=== PATIENT | male | born 1950 | race African-American/Black ===

== ENCOUNTER 2022-03-22 18:47 | Inpatient (IN) | payer BC, OTHER ==
[2022-03-22] MEDS ORDERED: ACETAMINOPHEN 1000 MG/100 ML BAG IVPB ONE (19:25)
[2022-03-22] MEDS ORDERED: SODIUM CHLORIDE 0.9% 500 ML INFUS.BAG IV ONE (19:25)
[2022-03-22] MEDS ORDERED: KETOROLAC TROMETHAMINE 15 MG/ML VIAL IVPUSH ONE (19:25)
[2022-03-22 19:33] VITALS: RESP 18
[2022-03-22 21:08] LABS: BASO % 0.5 % (0-2.0); HEMATOCRIT 33.5 % (35.4-49); HEMOGLOBIN 11.3 GM/dL (11.7-16.9); LYMPH % 12.7 % (8-40); MCH 29.7 pg (25.7-33.7); MCHC 33.9 g/dl (32.0-35.9); MEAN CELL VOLUME 87.7 fl (80-96); MEAN PLT VOLUME 8.6 fl (7.5-11.1); NEUT % 73.8 % (42.8-82.8); PLATELET COUNT 236 10^3/uL (134-434); RBC 3.82 M/mm3 (4.00-5.60); RDW 13.3 % (11.9-15.9); WHITE BLOOD COUNT 14.6 K/mm3 (4.0-10.0)
[2022-03-22 21:09] LABS: VENOUS BASE EXCESS 0.2 mmol/L (-2-2); VENOUS O2 SATURATION 88.3 % (70-80); VENOUS PCO2 27.8 mmHg (38-52); VENOUS PH 7.515 (7.310-7.410)
[2022-03-22 21:22] LABS: INR 1.15 (0.83-1.09); PROTHROMBIN TIME (PATIENT) 13.2 SEC (9.7-13.0)
[2022-03-22 21:25] LABS: ACTIVATED PTT 29.1 SECONDS (25.2-36.5)
[2022-03-22] MEDS ORDERED: ACETAMINOPHEN INJECTION 100 ML IVPB ONE (21:25)
[2022-03-22] MEDS ORDERED: KETOROLAC TROMETHAMINE 15 MG/ML VIAL ONE (21:26)
[2022-03-22 21:43] LABS: ALBUMIN 3.4 g/dl (3.4-5.0); BLOOD UREA NITROGEN 50.6 mg/dL (7-18); CALCIUM 9.6 mg/dL (8.5-10.1)
[2022-03-22 21:47] LABS: CREATININE 2.8 mg/dL (0.55-1.3)
[2022-03-22 21:48] LABS: BILIRUBIN,TOTAL 0.6 mg/dL (0.2-1)
[2022-03-23] MEDS ORDERED: KETOROLAC TROMETHAMINE 15 MG/ML VIAL IVPUSH PRN (03:58)
[2022-03-23] MEDS ORDERED: predniSONE 20 MG TABLET (UD) PO SCH ×2 (03:58→10:00)
[2022-03-23 05:37] LABS: EPI CELLS 17 /uL (0-25.1); HYALINE CASTS 7 /uL (0-3.1); URINE APPEARANCE CLOUDY; URINE BILIRUBIN NEGATIVE (NEGATIVE); URINE COLOR YELLOW; URINE GLUCOSE (UA) NEGATIVE (NEGATIVE); URINE KETONE TRACE (NEGATIVE); URINE LEUK ESTERASE NEGATIVE (NEGATIVE); URINE NITRITE NEGATIVE (NEGATIVE); URINE PROTEIN 1+ (NEGATIVE); URINE RBC 7 /uL (0-23.9); URINE UROBILINOGEN 0.2 mg/dL (0.2-1.0); URINE WBC 33 /uL (0-25.8)
[2022-03-23 06:18] VITALS: BMI 24.5
[2022-03-23] MEDS: HEPARIN NA (PORCINE) 5,000 UNITS/ML 1ML VIAL SQ SCH ×2 (06:42→14:29)
[2022-03-23] MEDS: INSULIN SLIDING SCALE (NOVOLOG) 1 VIAL SQ SCH ×3 (06:57→17:25)
[2022-03-23] MEDS ORDERED: TRIAMCINOLONE ACET 40MG/1ML VIAL IM ONE (07:30)
[2022-03-23] MEDS ORDERED: LIDOCAINE HCL 2% (50ML VIAL) SQ ONE (07:30)
[2022-03-23 09:19] LABS: BASO % 0.1 % (0-2.0); HEMATOCRIT 32.5 % (35.4-49); HEMOGLOBIN 10.7 GM/dL (11.7-16.9); MCH 28.9 pg (25.7-33.7); MCHC 32.8 g/dl (32.0-35.9); MEAN CELL VOLUME 88.1 fl (80-96); MEAN PLT VOLUME 8.6 fl (7.5-11.1); MONO % 14.7 % (3.8-10.2); NEUT % 69.2 % (42.8-82.8); PLATELET COUNT 233 10^3/uL (134-434); RBC 3.69 M/mm3 (4.00-5.60); RDW 13.7 % (11.9-15.9)
[2022-03-23 09:50] LABS: ALBUMIN 2.9 g/dl (3.4-5.0); BLOOD UREA NITROGEN 55.5 mg/dL (7-18); CALCIUM 9.2 mg/dL (8.5-10.1)
[2022-03-23 09:51] LABS: MAGNESIUM 2.4 mg/dL (1.8-2.4); URIC ACID 10.9 mg/dL (2.6-7.2)
[2022-03-23 09:53] LABS: CREATININE 2.7 mg/dL (0.55-1.3); PHOSPHOROUS 4.6 mg/dL (2.5-4.9)
[2022-03-23] MEDS ORDERED: FINASTERIDE 5 MG TABLET (FP) PO SCH (10:00)
[2022-03-23] MEDS ORDERED: amLODIPine BESYLATE 5 MG TABLET (FP) PO SCH (10:00)
[2022-03-23] MEDS ORDERED: LISINOPRIL 20 MG TABLET PO SCH (10:00)
[2022-03-23 10:03] LABS: TOT PROT 6.9 g/dl (6.4-8.2)
[2022-03-23 10:06] LABS: BILIRUBIN,TOTAL 0.5 mg/dL (0.2-1)
[2022-03-23 10:56] LABS: CRYSTALS,SYNOVIAL FLUID POSITIVE
[2022-03-23 11:09] LABS: BF WBC & OTHER NUCLEATED CELLS 14580 /mm3
[2022-03-23 11:17] LABS: URINE BACTERIA 8.5 /uL (0-1359)
[2022-03-23 11:31] LABS: BODY FLUID MONOCYTE 2 %
[2022-03-23] MEDS ORDERED: sitaGLIPtin PHOSPHATE 50 MG TABLET PO SCH (13:45)
[2022-03-23 15:09] VITALS: BP 149/95; PULSE 115; TEMP 98.7
[2022-03-23] MEDS ORDERED: ATORVASTATIN CA 10 MG TABLET (FP) PO SCH (22:00)
== END 2022-03-23 20:10 | disposition left against medical advice (07) | DRG 554 ==
LOC: JER 18:47 → JERBED 21:50 → J7W 03-23 05:15
PROVIDERS: ADMIT Internal Medicine; ATTEND Internal Medicine
PROC: 0S9D3ZZ Drainage of Left Knee Joint, Percutaneous Approach (ICD-10-PCS; principal; 2022-03-23)
DX: M10.9 Gout, unspecified (principal); N17.9 Acute kidney failure, unspecified; M25.50 Pain in unspecified joint; D72.829 Elevated white blood cell count, unspecified; J45.909 Unspecified asthma, uncomplicated; I12.9 Hypertensive chronic kidney disease with stage 1 through stage 4 chronic kidney disease, or unspecified chronic kidney disease; N18.9 Chronic kidney disease, unspecified; E78.5 Hyperlipidemia, unspecified; F17.210 Nicotine dependence, cigarettes, uncomplicated; E11.22 Type 2 diabetes mellitus with diabetic chronic kidney disease
CPT/HCPCS: 0241U-QW; 36415; 71045-TC-FY; 76775-TC; 80053; 80061; 81003; 82570; 82803; 82962; 83605; 83735; 84100; 84156; 84484; 84550; 84560; 85025; 85610; 85651; 85730; 86140; 86850; 86900; 86901; 87040; 87070; 87075; 87086; 87205; 89060; 93005; 93010; 99285-25; J1644